=== PATIENT | male | born 1980 | race African-American/Black ===

== ENCOUNTER 2016-11-13 18:59 | Emergency (ER) | payer OTHER ==
[2016-11-13 19:43] LABS: BASOPHIL % 0.9 % (0-2); PLATELET COUNT 189 x10^3mcL (130-400); RED CELL DISTRIBUTION WIDTH 13.6 % (11.5-14.5)
[2016-11-13 19:57] LABS: CALCIUM 8.8 mg/dL (8.5-10.1); CARBON DIOXIDE 29.8 mmol/L (21-32); CHLORIDE SERUM 106 mmol/L (98-107); CREATININE SERUM 1.2 mg/dL (0.7-1.3); GFR1 > 60 mL/min; GLUCOSE SERUM 95 mg/dL (74-106); POTASSIUM SERUM 3.9 mmol/L (3.5-5.1); SODIUM SERUM 145 mmol/L (136-145)
[2016-11-13 20:01] LABS: ALBUMIN 3.8 g/dL (3.4-5.0); ALKALINE PHOSPHATASE 85 U/L (46-116); ALT/SGPT 53 U/L (16-63); AMYLASE 51 U/L (25-115); AST/SGOT 21 U/L (15-37); BILIRUBIN TOTAL 0.64 mg/dL (0.20-1.00); LIPASE 177 IU/L (73-393); TOTAL PROTEIN, SERUM 7.9 g/dL (6.4-8.2)
[2016-11-13 21:43] VITALS: BP 130/88
== END 2016-11-13 21:43 | disposition home or self-care (01) ==
LOC: ED 18:59
PROVIDERS: Emergency Medicine
DX: R10.9 Unspecified abdominal pain (principal)
CPT/HCPCS: 36415

== ENCOUNTER 2016-11-15 08:08 | Inpatient (IN) | payer OTHER ==
[~2016-11-15] VITALS: Ht 190.5 cm; Wt 115.7 kg
[2016-11-15 09:26] LABS: BASOPHIL % 0.8 % (0-2); PLATELET COUNT 190 x10^3mcL (130-400); RED CELL DISTRIBUTION WIDTH 13.7 % (11.5-14.5)
[2016-11-15 09:31] LABS: CARBON DIOXIDE 29.3 mmol/L (21-32); CHLORIDE SERUM 102 mmol/L (98-107); CREATININE SERUM 1.2 mg/dL (0.7-1.3); GFR1 > 60 mL/min; GLUCOSE SERUM 87 mg/dL (74-106); POTASSIUM SERUM 3.9 mmol/L (3.5-5.1); SODIUM SERUM 140 mmol/L (136-145)
[2016-11-15 09:35] LABS: ALKALINE PHOSPHATASE 92 U/L (46-116); ALT/SGPT 40 U/L (16-63); AMYLASE 47 U/L (25-115); AST/SGOT 22 U/L (15-37); BILIRUBIN TOTAL 1.1 mg/dL (0.20-1.00); LIPASE 179 IU/L (73-393)
[2016-11-15 09:36] LABS: TOTAL PROTEIN, SERUM 8.3 g/dL (6.4-8.2)
[2016-11-15 10:34] LABS: UA SPECIFIC GRAVITY <=1.005 (1.005-1.035); microscopic required? YES; urine erythrocyte TRACE (NEGATIVE)
[2016-11-15 12:31] LABS: CHOLESTEROL/HDL RATIO 3.8; PHOSPHOROUS 3.6 mg/dL (2.5-4.9)
[2016-11-15 12:32] LABS: T3 TOTAL 1.06 ng/mL
[2016-11-15 12:55] VITALS: BP 134/74
[2016-11-15 12:58] VITALS: BP 118/79
[2016-11-15 12:59] VITALS: BP 118/79
[2016-11-15 13:12] VITALS: Ht 190.5 cm; Wt 115.7 kg
[2016-11-15 15:05] LABS: AMPHETAMINE QUAL UR NONE DETECTED (NEG <=1000)
[2016-11-15 16:15] LABS: FREE T4 1.21 ng/dL (0.76-1.46); FREE THYROXINE INDEX 3.2 ug/dL (1.4-4.5); T4(THYROXINE) 9.6 ug/dL (4.7-13.3)
[2016-11-15 18:02] VITALS: BP 128/74
[2016-11-15 21:32] VITALS: BP 124/73
[2016-11-16 05:24] VITALS: BP 128/78
[2016-11-16 06:54] LABS: BASOPHIL % 0.6 % (0-2); PLATELET COUNT 177 x10^3mcL (130-400); RED CELL DISTRIBUTION WIDTH 13.4 % (11.5-14.5)
[2016-11-16 07:06] LABS: CALCIUM 8.7 mg/dL (8.5-10.1); CARBON DIOXIDE 26.7 mmol/L (21-32); CHLORIDE SERUM 105 mmol/L (98-107); CREATININE SERUM 1.1 mg/dL (0.7-1.3); GFR1 > 60 mL/min; GLUCOSE SERUM 81 mg/dL (74-106); MAGNESIUM 2.2 mg/dL (1.8-2.4); PHOSPHOROUS 3.6 mg/dL (2.5-4.9); POTASSIUM SERUM 4.5 mmol/L (3.5-5.1); SODIUM SERUM 141 mmol/L (136-145)
[2016-11-16 09:51] VITALS: BP 120/69
[2016-11-16 13:10] VITALS: BP 110/76
[2016-11-16 18:08] VITALS: BP 108/72
[2016-11-16 21:52] VITALS: BP 120/77
[2016-11-17 06:09] VITALS: BP 128/71
[2016-11-17 06:48] LABS: BASOPHIL % 0.4 % (0-2); PLATELET COUNT 176 x10^3mcL (130-400); RED CELL DISTRIBUTION WIDTH 13.4 % (11.5-14.5)
[2016-11-17 07:01] LABS: CALCIUM 8.4 mg/dL (8.5-10.1); CARBON DIOXIDE 27.5 mmol/L (21-32); CHLORIDE SERUM 103 mmol/L (98-107); CREATININE SERUM 1.2 mg/dL (0.7-1.3); GFR1 > 60 mL/min; GLUCOSE SERUM 97 mg/dL (74-106); MAGNESIUM 2.2 mg/dL (1.8-2.4); PHOSPHOROUS 4.2 mg/dL (2.5-4.9); POTASSIUM SERUM 3.7 mmol/L (3.5-5.1); SODIUM SERUM 137 mmol/L (136-145)
[2016-11-17 09:48] VITALS: BP 112/68
[2016-11-17 13:16] VITALS: BP 113/69
[2016-11-17] MEDS ORDERED: BENTYL20 MG PO (15:02)
[2016-11-17 15:26] VITALS: BP 113/69
== END 2016-11-17 16:20 | disposition home or self-care (01) | DRG 395 ==
LOC: ED 08:08 → DU 11:40
PROVIDERS: Emergency Medicine; Internal Medicine Gastroenterology; ADMIT Family Medicine
PROC: 0DB78ZX Excision of Stomach, Pylorus, Via Natural or Artificial Opening Endoscopic, Diagnostic (ICD-10-PCS; principal; 2016-11-16 14:30)
PROC: 0HBRXZZ Excision of Toe Nail, External Approach (ICD-10-PCS; 2016-11-16 14:30)
DX: K65.4 Sclerosing mesenteritis (principal); K58.9 Irritable bowel syndrome, unspecified; K59.09 Other constipation; E78.5 Hyperlipidemia, unspecified; B35.3 Tinea pedis; B35.1 Tinea unguium; E80.6 Other disorders of bilirubin metabolism; M79.675 Pain in left toe(s); Z68.32 Body mass index [BMI] 32.0-32.9, adult
CPT/HCPCS: 43235; 83880; 84439; G0480; J1200; J1610; J1644; J2250; J2270; J2310; J2405; J3010; J3490; J7030; Q0092; Q9967

== ENCOUNTER 2017-07-16 13:58 | Inpatient (IN) | payer OTHER ==
[~2017-07-16] VITALS: Ht 190.5 cm; Wt 117.5 kg
[~2017-07-16 13:58] MED LIST: BENTYL20 MG PO
[2017-07-16 18:13] LABS: UA SPECIFIC GRAVITY 1.025 (1.005-1.035); microscopic required? YES; urine erythrocyte TRACE (NEGATIVE)
[2017-07-16 18:16] LABS: CALCIUM 9.1 mg/dL (8.5-10.1); CARBON DIOXIDE 28.5 mmol/L (21-32); CHLORIDE SERUM 101 mmol/L (98-107); CREATININE SERUM 1.2 mg/dL (0.7-1.3); GFR1 > 60 mL/min; GLUCOSE SERUM 84 mg/dL (74-106); SODIUM SERUM 139 mmol/L (136-145)
[2017-07-16 18:19] LABS: BASOPHIL % 0.6 % (0-2); PLATELET COUNT 179 x10^3mcL (130-400); RED CELL DISTRIBUTION WIDTH 14.5 % (11.5-14.5)
[2017-07-16 18:20] LABS: ALBUMIN 3.9 g/dL (3.4-5.0); ALKALINE PHOSPHATASE 73 U/L (46-116); ALT/SGPT 57 U/L (16-63); AST/SGOT 35 U/L (15-37); BILIRUBIN TOTAL 1.6 mg/dL (0.20-1.00); CHOLESTEROL 155 mg/dL (<200); CHOLESTEROL/HDL RATIO 3.5; HDL CHOLESTEROL 44 mg/dL (40-60); LIPASE 160 IU/L (73-393); TOTAL PROTEIN, SERUM 8.1 g/dL (6.4-8.2); TRIGLYCERIDES 68 mg/dL (<150)
[2017-07-16 18:42] LABS: FREE T4 1.1 ng/dL (0.76-1.46); FREE THYROXINE INDEX 2.8 ug/dL (1.4-4.5); T4(THYROXINE) 7.8 ug/dL (4.7-13.3)
[2017-07-16 19:01] LABS: T3 TOTAL 0.85 ng/mL
[2017-07-16 23:13] LABS: MAGNESIUM 2.1 mg/dL (1.8-2.4); PHOSPHOROUS 4.2 mg/dL (2.5-4.9)
[2017-07-16 23:42] VITALS: BP 139/70
[2017-07-16 23:46] VITALS: Ht 190.5 cm; Wt 117.5 kg
[2017-07-17 00:19] LABS: AMPHETAMINE QUAL UR NONE DETECTED (NEG <=1000)
[2017-07-17 02:50] VITALS: BP 139/70
[2017-07-17 05:33] VITALS: BP 101/68
[2017-07-17 08:52] VITALS: BP 120/68
[2017-07-17 14:20] LABS: BASOPHIL % 0.5 % (0-2); PLATELET COUNT 179 x10^3mcL (130-400); RED CELL DISTRIBUTION WIDTH 14.4 % (11.5-14.5)
[2017-07-17 14:28] VITALS: BP 124/71
[2017-07-17 14:52] LABS: CALCIUM 8.9 mg/dL (8.5-10.1); CARBON DIOXIDE 24.1 mmol/L (21-32); CHLORIDE SERUM 104 mmol/L (98-107); CREATININE SERUM 1.2 mg/dL (0.7-1.3); GFR1 > 60 mL/min; GLUCOSE SERUM 96 mg/dL (74-106); POTASSIUM SERUM 3.6 mmol/L (3.5-5.1); SODIUM SERUM 141 mmol/L (136-145)
[2017-07-17 16:13] VITALS: BP 111/71
[2017-07-17 20:43] VITALS: BP 115/70
[2017-07-18 05:37] VITALS: BP 113/60
[2017-07-18 07:25] LABS: BASOPHIL % 0.5 % (0-2); PLATELET COUNT 153 x10^3mcL (130-400)
[2017-07-18 07:39] LABS: CALCIUM 8.3 mg/dL (8.5-10.1); CARBON DIOXIDE 25.7 mmol/L (21-32); CHLORIDE SERUM 105 mmol/L (98-107); CREATININE SERUM 1.2 mg/dL (0.7-1.3); GFR1 > 60 mL/min; GLUCOSE SERUM 90 mg/dL (74-106); PHOSPHOROUS 3.6 mg/dL (2.5-4.9); SODIUM SERUM 141 mmol/L (136-145)
[2017-07-18] MEDS ORDERED: ZIT250 PO (08:57)
[2017-07-18] MEDS ORDERED: LEVAQUIN750 MG PO (08:57)
[2017-07-18] MEDS ORDERED: LAC PO (08:59)
[2017-07-18 09:43] VITALS: BP 131/76
[2017-07-18 11:45] VITALS: BP 131/76
[2017-07-18] MEDS ORDERED: VENTOLIN H0.09 MG/A1 INH (11:45)
== END 2017-07-18 13:25 | disposition home or self-care (01) | DRG 194 ==
LOC: ED 13:58 → DU 22:38 → MU 07-18 06:17
PROVIDERS: Family Medicine; Specialist
DX: J18.9 Pneumonia, unspecified organism (principal); N39.0 Urinary tract infection, site not specified; K59.00 Constipation, unspecified; E78.5 Hyperlipidemia, unspecified; B35.3 Tinea pedis; B35.1 Tinea unguium; Z68.32 Body mass index [BMI] 32.0-32.9, adult
CPT/HCPCS: 83880; 84439; 90732; J0696; J1170; J1644; J1885; J1956; J2405; J3010; J7030; J7620; Q0092; Q9967

== ENCOUNTER 2017-07-23 02:04 | Emergency (ER) | payer SELFPAY ==
[~2017-07-23] VITALS: Ht 190.5 cm; Wt 117.0 kg
[~2017-07-23 02:04] MED LIST changes: +LAC PO; +LEVAQUIN750 MG PO; +VENTOLIN H0.09 MG/A1 INH; +ZIT250 PO
[2017-07-23 02:11] VITALS: Ht 190.5 cm; Wt 117.0 kg
[2017-07-23 04:03] LABS: BASOPHIL % 0.1 % (0-2); PLATELET COUNT 213 x10^3mcL (130-400); RED CELL DISTRIBUTION WIDTH 13.7 % (11.5-14.5)
[2017-07-23 04:05] LABS: UA SPECIFIC GRAVITY 1.025 (1.005-1.035); microscopic required? YES; urine erythrocyte NEGATIVE (NEGATIVE)
[2017-07-23 04:24] LABS: CALCIUM 9.1 mg/dL (8.5-10.1); CARBON DIOXIDE 28.5 mmol/L (21-32); CHLORIDE SERUM 98 mmol/L (98-107); CREATININE SERUM 1.3 mg/dL (0.7-1.3); GFR1 > 60 mL/min; GLUCOSE SERUM 99 mg/dL (74-106); POTASSIUM SERUM 3.9 mmol/L (3.5-5.1); SODIUM SERUM 136 mmol/L (136-145)
[2017-07-23 04:30] LABS: ALKALINE PHOSPHATASE 80 U/L (46-116); ALT/SGPT 68 U/L (16-63); AST/SGOT 37 U/L (15-37); BILIRUBIN TOTAL 1.59 mg/dL (0.20-1.00); LIPASE 166 IU/L (73-393); TOTAL PROTEIN, SERUM 8.6 g/dL (6.4-8.2)
[2017-07-23 08:12] LABS: CHOLESTEROL/HDL RATIO 4.1; MAGNESIUM 1.9 mg/dL (1.8-2.4); PHOSPHOROUS 3.2 mg/dL (2.5-4.9)
[2017-07-23 10:21] LABS: AMPHETAMINE QUAL UR NONE DETECTED (NEG <=1000)
[2017-07-23 17:20] VITALS: BP 135/85
== END 2017-07-23 17:20 | disposition home or self-care (01) ==
LOC: ED 02:04
PROVIDERS: Emergency Medicine; Family Medicine
DX: R07.89 Other chest pain (principal); R10.12 Left upper quadrant pain; J90 Pleural effusion, not elsewhere classified
CPT/HCPCS: 83880; J0696; J1170; J2270; J2800; J7030; Q0092; Q9966; Q9967

== ENCOUNTER 2017-08-20 16:36 | Emergency (ER) | payer SELFPAY ==
[~2017-08-20] VITALS: Ht 190.5 cm; Wt 113.4 kg
[2017-08-20 16:47] VITALS: Ht 190.5 cm; Wt 113.4 kg
[2017-08-20 20:16] VITALS: BP 130/85
== END 2017-08-20 20:16 | disposition home or self-care (01) ==
LOC: ED 16:36
DX: R09.1 Pleurisy (principal); R10.9 Unspecified abdominal pain; J45.909 Unspecified asthma, uncomplicated; K85.90 Acute pancreatitis without necrosis or infection, unspecified; Z87.01 Personal history of pneumonia (recurrent)

== ENCOUNTER 2018-01-17 14:01 | Emergency (ER) | payer SELFPAY ==
[~2018-01-17] VITALS: Ht 190.5 cm; Wt 120.2 kg
[2018-01-17 14:16] VITALS: Ht 190.5 cm; Wt 120.2 kg
[2018-01-17 15:09] LABS: BASOPHIL % 1.1 % (0-2); PLATELET COUNT 176 x10^3mcL (130-400); RED CELL DISTRIBUTION WIDTH 13.6 % (11.5-14.5)
[2018-01-17 15:38] LABS: CALCIUM 9.3 mg/dL (8.5-10.1); CARBON DIOXIDE 29.7 mmol/L (21-32); CHLORIDE SERUM 97 mmol/L (98-107); GFR1 > 60 mL/min; GLUCOSE SERUM 86 mg/dL (74-106); POTASSIUM SERUM 3.7 mmol/L (3.5-5.1); SODIUM SERUM 137 mmol/L (136-145)
[2018-01-17 15:46] LABS: T3 TOTAL 0.86 ng/mL
[2018-01-17 15:50] LABS: ALBUMIN 4.2 g/dL (3.4-5.0); ALKALINE PHOSPHATASE 77 U/L (46-116); ALT/SGPT 33 U/L (16-63); AST/SGOT 21 U/L (15-37); BILIRUBIN TOTAL 0.8 mg/dL (0.20-1.00)
[2018-01-17 15:52] LABS: TOTAL PROTEIN, SERUM 8.9 g/dL (6.4-8.2)
[2018-01-17 16:20] LABS: FREE T4 0.86 ng/dL (0.76-1.46); T4(THYROXINE) 6.6 ug/dL (4.7-13.3)
[2018-01-17 17:27] LABS: UA SPECIFIC GRAVITY 1.025 (1.005-1.035); microscopic required? YES; urine erythrocyte NEGATIVE (NEGATIVE)
[2018-01-17 18:58] LABS: ERYTHROCYTE SED RATE 17 mm/hr (0-15)
[2018-01-17 19:06] VITALS: BP 127/65
== END 2018-01-17 19:06 | disposition home or self-care (01) ==
LOC: ED 14:01
PROVIDERS: Specialist
DX: R09.1 Pleurisy (principal); J45.909 Unspecified asthma, uncomplicated
CPT/HCPCS: 36600; 84439; J1885; J1956; J2405; J2930; J3010; J7613; J7644

== ENCOUNTER 2018-03-10 10:22 | Inpatient (IN) | payer MEDICAID ==
[~2018-03-10] VITALS: Ht 190.5 cm; Wt 126.2 kg
[2018-03-10 13:13] LABS: CALCIUM 9.1 mg/dL (8.5-10.1); CARBON DIOXIDE 32.8 mmol/L (21-32); CHLORIDE SERUM 102 mmol/L (98-107); CREATININE SERUM 1.1 mg/dL (0.7-1.3); GFR1 > 60 mL/min; GLUCOSE SERUM 124 mg/dL (74-106); POTASSIUM SERUM 3.9 mmol/L (3.5-5.1); SODIUM SERUM 139 mmol/L (136-145)
[2018-03-10 13:17] LABS: ALBUMIN 3.6 g/dL (3.4-5.0); ALKALINE PHOSPHATASE 84 U/L (46-116); ALT/SGPT 82 U/L (16-63); AST/SGOT 41 U/L (15-37); BILIRUBIN TOTAL 0.8 mg/dL (0.20-1.00); LIPASE 187 IU/L (73-393); TOTAL PROTEIN, SERUM 8.2 g/dL (6.4-8.2)
[2018-03-10 13:18] LABS: BASOPHIL % 0.2 % (0-2); PLATELET COUNT 188 x10^3mcL (130-400); RED CELL DISTRIBUTION WIDTH 14.1 % (11.5-14.5)
[2018-03-10 14:41] LABS: AMPHETAMINE QUAL UR NONE DETECTED (See below)
[2018-03-10 15:24] LABS: microscopic required? YES; urine erythrocyte NEGATIVE (NEGATIVE)
[2018-03-10 15:32] VITALS: BP 126/81
[2018-03-10 15:39] VITALS: Ht 190.5 cm; Wt 126.2 kg
[2018-03-10 16:04] LABS: MAGNESIUM 2.2 mg/dL (1.8-2.4)
[2018-03-10 16:06] LABS: CHOLESTEROL/HDL RATIO 3.6
[2018-03-10 16:13] LABS: FREE T4 0.96 ng/dL (0.76-1.46); FREE THYROXINE INDEX 2.3 ug/dL (1.4-4.5); T4(THYROXINE) 7.1 ug/dL (4.7-13.3)
[2018-03-10 17:13] VITALS: BP 125/71
[2018-03-10 20:07] VITALS: BP 119/72
[2018-03-11 05:04] VITALS: BP 108/67
[2018-03-11 05:48] LABS: BASOPHIL % 0.6 % (0-2); PLATELET COUNT 165 x10^3mcL (130-400); RED CELL DISTRIBUTION WIDTH 14.4 % (11.5-14.5)
[2018-03-11 06:19] LABS: CALCIUM 8.1 mg/dL (8.5-10.1); CARBON DIOXIDE 30.2 mmol/L (21-32); CHLORIDE SERUM 106 mmol/L (98-107); CREATININE SERUM 1.1 mg/dL (0.7-1.3); GFR1 > 60 mL/min; GLUCOSE SERUM 95 mg/dL (74-106); MAGNESIUM 2.1 mg/dL (1.8-2.4); PHOSPHOROUS 4.9 mg/dL (2.5-4.9); POTASSIUM SERUM 4.5 mmol/L (3.5-5.1); SODIUM SERUM 141 mmol/L (136-145)
[2018-03-11 07:54] VITALS: BP 112/71
[2018-03-11 12:00] VITALS: BP 106/70
[2018-03-11 16:43] VITALS: BP 114/63
[2018-03-11 20:21] VITALS: BP 126/73
[2018-03-12 05:08] VITALS: BP 129/80
[2018-03-12 06:06] LABS: BASOPHIL % 0.7 % (0-2); PLATELET COUNT 185 x10^3mcL (130-400); RED CELL DISTRIBUTION WIDTH 14.2 % (11.5-14.5)
[2018-03-12 06:20] LABS: CALCIUM 8.3 mg/dL (8.5-10.1); CARBON DIOXIDE 27.2 mmol/L (21-32); CHLORIDE SERUM 104 mmol/L (98-107); CREATININE SERUM 1.3 mg/dL (0.7-1.3); GFR1 > 60 mL/min; GLUCOSE SERUM 95 mg/dL (74-106); POTASSIUM SERUM 4.5 mmol/L (3.5-5.1); SODIUM SERUM 138 mmol/L (136-145)
[2018-03-12 09:00] VITALS: BP 123/78
[2018-03-12 17:02] VITALS: BP 138/84
[2018-03-12 20:55] VITALS: BP 110/80
[2018-03-13 05:51] VITALS: BP 124/79
[2018-03-13 05:59] LABS: BASOPHIL % 0.3 % (0-2); PLATELET COUNT 191 x10^3mcL (130-400); RED CELL DISTRIBUTION WIDTH 14.4 % (11.5-14.5)
[2018-03-13 06:36] LABS: CALCIUM 8.7 mg/dL (8.5-10.1); CARBON DIOXIDE 28.4 mmol/L (21-32); CHLORIDE SERUM 102 mmol/L (98-107); CREATININE SERUM 1.2 mg/dL (0.7-1.3); GFR1 > 60 mL/min; GLUCOSE SERUM 88 mg/dL (74-106); POTASSIUM SERUM 4.2 mmol/L (3.5-5.1); SODIUM SERUM 138 mmol/L (136-145)
[2018-03-13 08:22] VITALS: BP 112/82
[2018-03-13 12:12] VITALS: BP 117/81
[2018-03-13] MEDS ORDERED: COU10 PO (12:39)
[2018-03-13] MEDS ORDERED: COUMADIN5 MG PO (12:40)
[2018-03-13] MEDS ORDERED: LOV40I SQ (12:41)
[2018-03-13] MEDS ORDERED: OXYCODONE HYDRO10 M1 PO (12:41)
[2018-03-13 13:25] VITALS: BP 117/81
== END 2018-03-13 16:10 | disposition home or self-care (01) | DRG 134 ==
LOC: ED 10:22 → MU 14:19 → DU 03-12 17:03
PROVIDERS: Emergency Medicine; Family Medicine; Internal Medicine
DX: I26.99 Other pulmonary embolism without acute cor pulmonale (principal); J18.9 Pneumonia, unspecified organism; D68.69 Other thrombophilia; E66.9 Obesity, unspecified; J45.909 Unspecified asthma, uncomplicated; B35.3 Tinea pedis; S96.912A Strain of unspecified muscle and tendon at ankle and foot level, left foot, initial encounter; K76.0 Fatty (change of) liver, not elsewhere classified; E78.49 Other hyperlipidemia; R74.0 Nonspecific elevation of levels of transaminase and lactic acid dehydrogenase [LDH]; Z68.34 Body mass index [BMI] 34.0-34.9, adult; Z79.01 Long term (current) use of anticoagulants; Y93.B9 Activity, other involving muscle strengthening exercises; Y92.89 Other specified places as the place of occurrence of the external cause
CPT/HCPCS: 83880; 84439; 94150; J1644; J1650; J1885; J2270; J2405; J2543; J3535; J7030; J7050; J7613; J7620; Q0092; Q9967

== ENCOUNTER 2018-03-13 20:52 | Inpatient (IN) | payer MEDICAID ==
[~2018-03-13] VITALS: Ht 170.2 cm; Wt 122.5 kg
[~2018-03-13 20:52] MED LIST changes: +COU10 PO; +COUMADIN5 MG PO; +LOV40I SQ; +OXYCODONE HYDRO10 M1 PO
[2018-03-13 20:56] VITALS: Ht 170.2 cm; Wt 122.5 kg
[2018-03-13 23:58] VITALS: BP 148/97
[2018-03-14 00:31] VITALS: BP 148/97
[2018-03-14 05:26] VITALS: BP 147/80
[2018-03-14 06:28] LABS: CARBON DIOXIDE 28.8 mmol/L (21-32); CHLORIDE SERUM 103 mmol/L (98-107); CREATININE SERUM 1.1 mg/dL (0.7-1.3); GFR1 > 60 mL/min; GLUCOSE SERUM 85 mg/dL (74-106); MAGNESIUM 2.1 mg/dL (1.8-2.4); POTASSIUM SERUM 4.3 mmol/L (3.5-5.1); SODIUM SERUM 138 mmol/L (136-145)
[2018-03-14 06:39] LABS: BASOPHIL % 0.5 % (0-2); PLATELET COUNT 208 x10^3mcL (130-400); RED CELL DISTRIBUTION WIDTH 13.9 % (11.5-14.5)
[2018-03-14 08:25] VITALS: BP 113/65
[2018-03-14 12:12] VITALS: BP 118/78
[2018-03-14 16:16] VITALS: BP 123/80
[2018-03-15 03:25] VITALS: BP 126/75
[2018-03-15 05:16] VITALS: BP 107/61
[2018-03-15 06:02] LABS: BASOPHIL % 0.6 % (0-2); PLATELET COUNT 237 x10^3mcL (130-400)
[2018-03-15 06:44] LABS: CALCIUM 9.1 mg/dL (8.5-10.1); CARBON DIOXIDE 28.3 mmol/L (21-32); CHLORIDE SERUM 101 mmol/L (98-107); CREATININE SERUM 1.2 mg/dL (0.7-1.3); GFR1 > 60 mL/min; GLUCOSE SERUM 81 mg/dL (74-106); PHOSPHOROUS 4.6 mg/dL (2.5-4.9); POTASSIUM SERUM 3.9 mmol/L (3.5-5.1); SODIUM SERUM 136 mmol/L (136-145)
[2018-03-15 08:16] VITALS: BP 115/77
[2018-03-15 12:30] VITALS: BP 116/78
[2018-03-15 16:34] VITALS: BP 111/72
[2018-03-15 20:36] VITALS: BP 126/78
[2018-03-16 05:02] VITALS: BP 112/74
[2018-03-16 06:05] LABS: BASOPHIL % 0.6 % (0-2); PLATELET COUNT 263 x10^3mcL (130-400)
[2018-03-16 06:06] LABS: CALCIUM 8.9 mg/dL (8.5-10.1); CARBON DIOXIDE 30.3 mmol/L (21-32); CHLORIDE SERUM 102 mmol/L (98-107); CREATININE SERUM 1.2 mg/dL (0.7-1.3); GFR1 > 60 mL/min; GLUCOSE SERUM 86 mg/dL (74-106); POTASSIUM SERUM 4.2 mmol/L (3.5-5.1); SODIUM SERUM 139 mmol/L (136-145)
[2018-03-16 10:06] VITALS: BP 121/79
[2018-03-16 14:08] VITALS: BP 125/83
[2018-03-16 17:43] VITALS: BP 129/80
[2018-03-16 20:08] VITALS: BP 121/74
[2018-03-17 05:14] VITALS: BP 107/71
[2018-03-17 07:36] VITALS: BP 107/71
== END 2018-03-17 08:30 | disposition home or self-care (01) | DRG 134 ==
LOC: ED 20:52 → DU 22:20
PROVIDERS: Internal Medicine
DX: I26.99 Other pulmonary embolism without acute cor pulmonale (principal); E83.39 Other disorders of phosphorus metabolism; E78.5 Hyperlipidemia, unspecified; J45.909 Unspecified asthma, uncomplicated; Z68.33 Body mass index [BMI] 33.0-33.9, adult
CPT/HCPCS: 90658; 94150; J1650; J2270; J7620